=== PATIENT | female | born 1960 | race African-American/Black ===

== ENCOUNTER 2018-02-21 12:05 | Outpatient (CLI) | payer MEDICARE, MEDICAID ==
[~2018-02-21 12:05] MED LIST: BENAZEPRIL HCL10 MG ORAL; GABAPENTIN600 MG ORAL; HYDROXYZINE PAM25 MG PO; LORAZEPAM1 MG ORAL; MECLIZINE HCL25 MG ORAL; METOCLOPRAMIDE H5 M1 ORAL; METOPROLOL TART50 M1 ORAL; PRAVASTATIN SOD20 M1 ORAL; PRISTIQ50 MG PO; PROMETHAZI6.25 MG/1 ORAL; PROTONIX40 MG ORAL
[2018-02-21 12:43] LABS: BASOPHILS % (AUTO) 0.9 % (0.0-2.0); EOSINOPHILS % (AUTO) 1.6 % (0.0-3.0); HEMATOCRIT 28.4 % (37.0-47.0); HEMOGLOBIN 9.4 G/DL (12.0-16.0); LYMPHOCYTES % (AUTO) 41.5 % (20.0-45.0); MEAN CORPUSCULAR VOLUME 96 FL (80-99); MONOCYTES % (AUTO) 7.1 % (1.0-10.0); NEUTROPHILS % (AUTO) 48.9 % (45.0-75.0); PLATELET COUNT 242 K/UL (150-450); RED BLOOD COUNT 2.97 M/UL (4.20-5.40); RED CELL DISTRIBUTION WIDTH 11.7 % (11.6-14.8); WHITE BLOOD COUNT 8.4 K/UL (4.8-10.8)
[2018-02-21 12:58] LABS: ANION GAP 8 mmol/L (5-15); BLOOD UREA NITROGEN 27 mg/dL (7-18); CALCIUM 9.3 MG/DL (8.5-10.1); CARBON DIOXIDE 27 MMOL/L (21-32); CHLORIDE 105 MMOL/L (98-107); CREATININE 1.7 MG/DL (0.55-1.30); PHOSPHORUS 3.1 MG/DL (2.5-4.9); POTASSIUM 4.4 MMOL/L (3.5-5.1); SODIUM 140 MMOL/L (136-145)
== END 2018-02-21 14:05 | disposition home or self-care (01) ==
LOC: LAB 12:05
DX: I12.9 Hypertensive chronic kidney disease with stage 1 through stage 4 chronic kidney disease, or unspecified chronic kidney disease (principal); N18.3 Chronic kidney disease, stage 3 (moderate)
CPT/HCPCS: 36415; 80048; 83036; 83970; 84100; 85025